=== PATIENT | female | born 1940 | race Caucasian/White ===

== ENCOUNTER 2017-11-10 19:20 | Emergency (ER) | payer MEDICARE, OTHER ==
[2017-11-10] MEDS ORDERED: Sodium Chloride 0.9% 10 ML Syringe FLUSH PRN (20:24)
[2017-11-10] MEDS ORDERED: Acetaminophen 500 MG Tab PO ONE (20:32)
--- NOTE | 2017-11-10 20:32 | EDM.PDOC ---
ED HPI GENERAL MEDICAL PROBLEM - General Chief Complaint: Respiratory Problem Stated Complaint: cough, fever Time Seen by Provider: 11/10/17 19:47 Source of Information: Reports: Patient, Family History Limitations: Reports: No Limitations - History of Present Illness INITIAL COMMENTS - FREE TEXT/NARRATIVE: Patient presents to the emergency room this evening with complaints of shortness of breath that has progressively worsened over the last 2 weeks. She states that on Tuesday, October 30 she was eating popcorn at the movie and did aspirate some of the popcorn. She was seen in the clinic the following Tuesday with a chest x-ray performed which was negative. Since then she has progressively been coughing more often, is beginning to produce sputum that is yellowish in color and today started running a temperature. Hasn't dictation she has a fever of 101.4F past medical history includes coronary artery disease , hypertension, hypothyroidism, hyper cholesterolemia. Her daughter reports a triple bypass was performed in 2015. I do not know which vessels. Shortly after that she developed pulmonary emboli requiring heparinization. Additionally she does have stents after a short bout of shortness of breath it was discovered that her bypasses had failed. She is currently on chronic Plavix treatment. She currently denies any chest pain, blood in her urine or stool, abdominal pain, nausea or vomiting, headaches or dizziness. She does also have an indwelling pacemaker which appears to be atrially paced. She was also given a prescribed cough syrup from her primary doctor Dr. Robson Fisher. Onset: Gradual Duration: Getting Worse Location: Reports: Chest Quality: Reports: Ache Severity: Mild Improves with: Reports: Medication Associated Symptoms: Reports: Shortness of Breath Treatments [employer]PER: Reports: Acetaminophen Bilateral lower rib pain Pain Score (Numeric/FACES): 8 - Related Data Allergies Allergy/AdvReac Type Severity Reaction Status Date / Time ketorolac tromethamine Allergy Hives Verified 11/10/17 20:42 [From Toradol] propoxyphene napsylate Allergy Cannot Verified 11/10/17 20:42 [From Darvon-N] Remember acetaminophen AdvReac Nausea and Verified 11/10/17 20:42 [From Lorcet (hydrocodone)] Vomiting codeine AdvReac Nausea Verified 11/10/17 20:42 hydrocodone bitartrate AdvReac Nausea and Verified 11/10/17 20:42 [From Lorcet (hydrocodone)] Vomiting Home Meds: Home Meds Aspirin [Adult Low Dose Aspirin EC] 81 mg PO DAILY 10/28/15 [History] Cyclobenzaprine [Flexeril] 10 mg PO TID PRN 10/28/15 [History] Metoprolol Succinate [Toprol XL] 50 mg PO DAILY 10/28/15 [History] Omeprazole 20 mg PO DAILY 10/28/15 [History] Sertraline HCl [Zoloft] 50 mg PO DAILY 10/28/15 [History] Zolpidem [Ambien] 5 mg PO BEDTIME PRN 10/28/15 [History] atorvaSTATin [Lipitor] 40 mg PO BEDTIME 10/28/15 [History] Acetaminophen 650 mg PO Q4H PRN 05/03/17 [History] Albuterol [IJD: Albuterol HFA] 2 puff INH Q4H PRN 05/03/17 [History] Clopidogrel [Plavix] 75 mg PO DAILY 05/03/17 [History] Fluticasone/Vilanterol [Breo Ellipta 100-25 MCG Inhalation Kit] 1 puff IH DAILY 05/03/17 [History] Levothyroxine Sodium [Synthroid] 100 mcg PO DAILY 05/03/17 [History] Lisinopril 10 mg PO DAILY 05/03/17 [History] Nitroglycerin 0.4 mg SL ASDIRECTED 05/03/17 [History] Potassium Chloride 10 meq PO DAILY 05/03/17 [History] traMADol [Ultram] 50 mg PO BEDTIME PRN 05/03/17 [History] Furosemide [Lasix] 40 mg PO DAILY 11/10/17 [History] Past Medical History HEENT History: Reports: Cataract Other HEENT History: presbyopia. myopia. astigmatism. superficial injury of cornea. Blepharitis. indocyclitis (inflamation of iris) Cardiovascular History: Reports: Blood Clots/VTE/DVT, Bypass, CAD, High Cholesterol, Hypertension, [place] Other Cardiovascular History: sinoatrial node dysfunction. varicose veins of legs Respiratory History: Reports: PE Gastrointestinal History: Reports: Diverticulosis, GERD, Hepatitis Other Gastrointestinal History: Had surgery roughly about 3-4 years ago which at that time they removed part of the intestines. She did get good relief from that procedure. Other Genitourinary History: acquired absense of genital organ Musculoskeletal History: Reports: Back Pain, Chronic, Osteoporosis Other Musculoskeletal History: SI joint inflammation. compression fracture of thoracic vertebrae, non traumatic. compression fracture of lumbar vertebre, non -traumatic Other Psychiatric History: adjustment disorder with mixed anxiety and depressed mood. grief reaction. dysthimic disorder Endocrine/Metabolic History: Reports: Hypothyroidism Other Endocrine/Metabolic History: impaired fasting glucose Other Hematologic History: vit D deficiency - Past Surgical History Cardiovascular Surgical History: Reports: Coronary Artery Bypass, Other (See Below) Social & Family History - Tobacco Use Smoking Status *Q: Never Smoker - Recreational Drug Use Recreational Drug Use: No ED ROS GENERAL - Review of Systems Review Of Systems: See Below Constitutional: Reports: Fever, Chills HEENT: Reports: No Symptoms Respiratory: Reports: Shortness of Breath Cardiovascular: Reports: No Symptoms Endocrine: Reports: No Symptoms GI/Abdominal: Reports: No Symptoms : Reports: No Symptoms Musculoskeletal: Reports: No Symptoms Skin: Reports: No Symptoms Neurological: Reports: No Symptoms Psychiatric: Reports: No Symptoms Hematologic/Lymphatic: Reports: No Symptoms Immunologic: Reports: No Symptoms ED EXAM, GENERAL - Physical Exam Exam: See Below Exam Limited By: No Limitations General Appearance: Alert, WD/WN, Mild Distress Eye Exam: Bilateral Eye: EOMI, Normal Inspection, PERRL Ears: Normal TMs Nose: Normal Inspection, Normal Mucosa, No Blood Throat/Mouth: Normal Inspection, Normal Lips, Normal Teeth, Normal Gums, Normal Oropharynx, Normal Voice, No Airway Compromise Head: Atraumatic, Normocephalic Neck: Normal Inspection, Supple, Non-Tender, Full Range of Motion Respiratory/Chest: No Respiratory Distress, Normal Breath Sounds, No Accessory Muscle Use, Rales Cardiovascular: Regular Rate, Rhythm, No Murmur Peripheral Pulses: 2+: Posterior Tibial (L), Posterior Tibial (R), Dorsalis Pedis (L), Dorsalis Pedis (R) GI/Abdominal: Normal Bowel Sounds, Soft, Non-Tender, No Organomegaly, No Distention, No Abnormal Bruit, No Mass Back Exam: Normal Inspection, Full Range of Motion, NT Extremities: Normal Inspection, Normal Range of Motion, Non-Tender, Normal Capillary Refill, No Pedal Edema Neurological: Alert, Oriented, CN II-XII Intact, Normal Cognition, Normal Gait, Normal Reflexes, No Motor/Sensory Deficits Psychiatric: Normal Affect, Normal Mood Skin Exam: Warm, Dry, Intact, Normal Color, No Rash Lymphatic: No Adenopathy Course - Vital Signs Last Recorded V/S: Last Vital Signs Temp 38.6 C H 11/10/17 19:20 Pulse 88 11/10/17 19:20 Resp 28 H 11/10/17 19:20 BP 110/62 11/10/17 19:20 Pulse Ox 98 11/10/17 19:20 - Orders/Labs/Meds Orders: Active Orders 24 hr Category Date Time Status EKG Documentation Completion [RC] URGENT Care 11/10/17 20:24 Active Chest 2V [CR] Stat Exams 11/10/17 19:47 Taken CULTURE BLOOD [BC] Stat Lab 11/10/17 20:18 Received CULTURE BLOOD [BC] Stat Lab 11/10/17 20:28 Received CULTURE SPUTUM + SMEAR [RM] Stat Lab 11/10/17 20:38 Ordered URINALYSIS W/MICROSCOPIC [UA W/MICROSCOPIC] [URIN] Stat Lab 11/10/17 20:45 Ordered Sodium Chloride 0.9% [Saline Flush] Med 11/10/17 20:24 Active 10 ml FLUSH ASDIRECTED PRN Blood Culture x2 Reflex Set [OM.PC] Stat Oth 11/10/17 19:47 Ordered Saline Lock Insert [OM.PC] Routine Oth 11/10/17 20:24 Ordered Medication Orders Sodium Chloride (Saline Flush) 10 ml FLUSH ASDIRECTED PRN PRN Reason: Keep Vein Open Labs: Laboratory Tests 11/10/17 11/10/17 11/10/17 Range/Units 20:18 20:18 20:18 WBC 8.1 (4.0-10.0) x10^3/uL RBC 3.84 L (4.00-5.50) x10^6/uL Hgb 11.5 L (12.0-16.0) g/dL Hct 35.8 (33.0-47.0) % MCV 93.2 H (78.0-93.0) fL MCH 29.9 (26.0-32.0) pg MCHC 32.1 (32.0-36.0) g/dL RDW Coeff of [place] 15.2 H (10.0-15.0) % Plt Count 316 (130-400) x10^3/uL Neut % (Auto) 68.8 (50.0-80.0) % Lymph % (Auto) 18.6 L (25.0-50.0) % [place] % (Auto) 8.4 (2.0-11.0) % Eos % (Auto) 4.0 (0.0-4.0) % Baso % (Auto) 0.2 (0.2-1.2) % POC ABG pH (7.35-7.45) POC ABG pCO2 (35-45) mmHG POC ABG pO2 (80-105) mmHG POC ABG HCO3 (22-26) mmol/L POC ABG Total CO2 (23-27) mmol/L POC ABG O2 Sat (95-98) % POC ABG Base Excess (-2-3) mmol/L POC FiO2 Sodium 139 (136-145) mmol/L Potassium 4.2 (3.5-5.1) mmol/L Chloride 103 (98-107) mmol/L Carbon Dioxide 26 (21-32) mmol/L Anion Gap 14.2 (10-20) mmol/L BUN 17 (7-18) mg/dL Creatinine 1.2 H (0.55-1.02) mg/dL Est Cr Clr Drug Dosing 31.05 mL/min Estimated GFR (MDRD) 44 Glucose 143 H (74-106) mg/dL Lactic Acid 1.2 (0.4-2.0) mmol/L Calcium 9.0 (8.5-10.1) mg/dL Corrected Calcium 9.48 (8.5-10.1) mg/dL Magnesium 1.8 (1.8-2.4) mg/dL Total Bilirubin 0.5 (0.2-1.0) mg/dL AST 32 (15-37) U/L ALT 27 (14-59) U/L Alkaline Phosphatase 158 H (46-116) U/L Troponin I < 0.017 (<=0.056) ng/mL C-Reactive Protein 21.9 H (<=0.9) mg/dL NT-Pro-B Natriuret Pep 1380 H (<=450) pg/mL Total Protein 7.9 (6.4-8.2) g/dL Albumin 3.4 (3.4-5.0) g/dL Globulin 4.5 Albumin/Globulin Ratio 0.76 TSH, Ultra Sensitive 0.664 (0.358-3.74) uIU/mL Urine Color (YELLOW) Urine Appearance (CLEAR) Urine pH (5.0-8.0) Ur Specific [place] Urine Protein (NEGATIVE) mg/dL Urine Glucose (UA) (NEGATIVE) mg/dL Urine Ketones (NEGATIVE) mg/dL Urine Occult Blood (NEGATIVE) Urine Nitrite (NEGATIVE) Urine Bilirubin (NEGATIVE) Urine Urobilinogen (0.2) EU/dL Ur Leukocyte Esterase (NEGATIVE) Urine RBC (NOT SEEN) /HPF Urine WBC (NOT SEEN) /HPF Ur Squamous Epith Cells (NEGATIVE) /HPF Urine Bacteria (NEGATIVE) /HPF Hyaline Casts (NEGATIVE) /HPF Urine Mucus (NEGATIVE) /LPF 11/10/17 11/10/17 Range/Units 20:41 20:45 WBC (4.0-10.0) x10^3/uL RBC (4.00-5.50) x10^6/uL Hgb (12.0-16.0) g/dL Hct (33.0-47.0) % MCV (78.0-93.0) fL MCH (26.0-32.0) pg MCHC (32.0-36.0) g/dL RDW Coeff of [place] (10.0-15.0) % Plt Count (130-400) x10^3/uL Neut % (Auto) (50.0-80.0) % Lymph % (Auto) (25.0-50.0) % [place] % (Auto) (2.0-11.0) % Eos % (Auto) (0.0-4.0) % Baso % (Auto) (0.2-1.2) % POC ABG pH 7.474 H (7.35-7.45) POC ABG pCO2 36 (35-45) mmHG POC ABG pO2 60 L (80-105) mmHG POC ABG HCO3 26 (22-26) mmol/L POC ABG Total CO2 27 (23-27) mmol/L POC ABG O2 Sat 92 L (95-98) % POC ABG Base Excess 3 (-2-3) mmol/L POC FiO2 0.21 Sodium (136-145) mmol/L Potassium (3.5-5.1) mmol/L Chloride (98-107) mmol/L Carbon Dioxide (21-32) mmol/L Anion Gap (10-20) mmol/L BUN (7-18) mg/dL Creatinine (0.55-1.02) mg/dL Est Cr Clr Drug Dosing mL/min Estimated GFR (MDRD) Glucose (74-106) mg/dL Lactic Acid (0.4-2.0) mmol/L Calcium (8.5-10.1) mg/dL Corrected Calcium (8.5-10.1) mg/dL Magnesium (1.8-2.4) mg/dL Total Bilirubin (0.2-1.0) mg/dL AST (15-37) U/L ALT (14-59) U/L Alkaline Phosphatase (46-116) U/L Troponin I (<=0.056) ng/mL C-Reactive Protein (<=0.9) mg/dL NT-Pro-B Natriuret Pep (<=450) pg/mL Total Protein (6.4-8.2) g/dL Albumin (3.4-5.0) g/dL Globulin Albumin/Globulin Ratio TSH, Ultra Sensitive (0.358-3.74) uIU/mL Urine Color Dark yellow H (YELLOW) Urine Appearance Cloudy H (CLEAR) Urine pH 5.5 (5.0-8.0) Ur Specific [place] 1.010 Urine Protein Negative (NEGATIVE) mg/dL Urine Glucose (UA) Negative (NEGATIVE) mg/dL Urine Ketones Negative (NEGATIVE) mg/dL Urine Occult Blood Trace-intact H (NEGATIVE) Urine Nitrite Negative (NEGATIVE) Urine Bilirubin Negative (NEGATIVE) Urine Urobilinogen 0.2 (0.2) EU/dL Ur Leukocyte Esterase Negative (NEGATIVE) Urine RBC 5-10 H (NOT SEEN) /HPF Urine WBC 0-5 (NOT SEEN) /HPF Ur Squamous Epith Cells Few H (NEGATIVE) /HPF Urine Bacteria Few H (NEGATIVE) /HPF Hyaline Casts Few H (NEGATIVE) /HPF Urine Mucus Few H (NEGATIVE) /LPF Meds: Medications Generic Name Dose Route Start Last Admin Trade Name Freq PRN Reason Stop Dose Admin Sodium Chloride 10 ml 11/10/17 20:24 Saline Flush FLUSH ASDIRECTED PRN Keep Vein Open Discontinued Medications Generic Name Dose Route Start Last Admin Trade Name Freq PRN Reason Stop Dose Admin Acetaminophen 500 mg 11/10/17 20:32 11/10/17 20:44 Tylenol Extra Strength PO 11/10/17 20:33 500 mg ONETIME ONE Administration Ceftriaxone Sodium 1 gm 11/10/17 20:45 11/10/17 21:04 Rocephin IVPUSH 11/10/17 20:46 1 gm ONETIME ONE Administration - Radiology Interpretation Free Text/Narrative:: Chest x-ray shows mild vascular congestion. No infiltrates or atelectasis. - Re-Assessments/Exams Free Text/Narrative Re-Assessment/Exam: 11/10/17 21:53 Labs show normal WBC's, normal lactic acid, normal tsh, troponin, elevated CRP, elevated PRO BNP, normal potassium and magnesium. Urine negative Will treat as viral URI, with supplemental lasix for next 10 days and additional KCL tablets as well Departure - Departure Time of Disposition: 21:57 Disposition: Home, Self-Care 01 Condition: Good Clinical Impression: Acute exacerbation of congestive heart failure, Viral URI with cough - Discharge Information Instructions: Heart Failure, [id number], Upper Respiratory Infection, Adult, [id number] Forms: ED Department Discharge Additional Instructions: Your Pro BNP is elevated at 1380. This is an indicator that your heart failure at this time has worsened. I believe this is related to your most recent illness. Please take an additional dose of Lasix 40 mg in the early afternoon for 10 days. Please also add another 10 meQ of your potassium tablet at the same time. Please schedule a follow up appointment with Dr. Key for early next week and discuss your visit here. If you do not have improvement he may want you to follow up with your digital program manager. I have written you a prescription for 10 additional lasix tablets to take in the afternoon. Please call with any questions or concerns. - Problem List & Annotations (1) Acute exacerbation of congestive heart failure SNOMED Code(s): 82543872 Code(s): I50.9 - HEART FAILURE, UNSPECIFIED Status: Acute Priority: Low Current Visit: Yes Qualifiers: Heart failure type: unspecified Qualified Code(s): I50.9 - Heart failure, unspecified (2) Viral URI with cough SNOMED Code(s): 249748681 Code(s): J06.9 - ACUTE UPPER RESPIRATORY INFECTION, UNSPECIFIED; B97.89 - OTH VIRAL AGENTS THE CAUSE OF DISEASES CLASSD [id number] Status: Acute Priority: Low Current Visit: Yes - Problem List Review Problem List Initiated/Reviewed/Updated: Yes - My Orders Last 24 Hours: My Active Orders 11/10/17 19:47 Chest 2V [CR] Stat Blood Culture x2 Reflex Set [OM.PC] Stat 11/10/17 20:18 CULTURE BLOOD [BC] Stat 11/10/17 20:24 EKG Documentation Completion [RC] URGENT Sodium Chloride 0.9% [Saline Flush] 10 ml FLUSH ASDIRECTED PRN Saline Lock Insert [OM.PC] Routine 11/10/17 20:28 CULTURE BLOOD [BC] Stat 11/10/17 20:38 CULTURE SPUTUM + SMEAR [RM] Stat 11/10/17 20:45 URINALYSIS W/MICROSCOPIC [UA W/MICROSCOPIC] [URIN] Stat - Assessment/Plan Last 24 Hours: My Active Orders 11/10/17 19:47 Chest 2V [CR] Stat Blood Culture x2 Reflex Set [OM.PC] Stat 11/10/17 20:18 CULTURE BLOOD [BC] Stat 11/10/17 20:24 EKG Documentation Completion [RC] URGENT Sodium Chloride 0.9% [Saline Flush] 10 ml FLUSH ASDIRECTED PRN Saline Lock Insert [OM.PC] Routine 11/10/17 20:28 CULTURE BLOOD [BC] Stat 11/10/17 20:38 CULTURE SPUTUM + SMEAR [RM] Stat 11/10/17 20:45 URINALYSIS W/MICROSCOPIC [UA W/MICROSCOPIC] [URIN] Stat Assessment:: viral upper respiratory infectioin acute CHF exacerbation Plan: Your Pro BNP is elevated at 1380. This is an indicator that your heart failure at this time has worsened. I believe this is related to your most recent illness. Please take an additional dose of Lasix 40 mg in the early afternoon for 10 days. Please also add another 10 meQ of your potassium tablet at the same time. Please schedule a follow up appointment with Dr. Key for early next week and discuss your visit here. If you do not have improvement he may want you to follow up with your digital program manager. I have written you a prescription for 10 additional lasix tablets to take in the afternoon. Please call with any questions or concerns.
[2017-11-10] MEDS ORDERED: cefTRIAXone 1 GM Vial IVPUSH ONE (20:45)
[2017-11-10 20:56] VITALS: BP 110/62
[2017-11-10 21:13] LABS: CHLORIDE,CL 103 mmol/L (98-107); SODIUM,NA 139 mmol/L (136-145)
[2017-11-10] MEDS ORDERED: Furosemide 40 MG/4 ML VIAL IV ONE (21:37)
== END 2017-11-10 22:07 | disposition home or self-care (01) ==
LOC: VM.ED 19:20
DX: I11.0 Hypertensive heart disease with heart failure (principal); I50.9 Heart failure, unspecified; J06.9 Acute upper respiratory infection, unspecified; I25.2 Old myocardial infarction; E03.9 Hypothyroidism, unspecified; Z88.5 Allergy status to narcotic agent; Z88.8 Allergy status to other drugs, medicaments and biological substances; Z79.82 Long term (current) use of aspirin; Z79.899 Other long term (current) drug therapy
CPT/HCPCS: 36415; 36600; 71046; 80053; 81001; 82803; 83605; 83735; 83880; 84443; 84484; 85025; 86140; 87040; 93005; 96374; 96375; 99284; A9270; J0696; J1940

== ENCOUNTER 2020-11-08 08:16 | Emergency (ER) | payer MEDICARE, OTHER ==
[2020-11-08] MEDS ORDERED: Morphine 2 MG/ML SYRINGE IM ONE (08:42)
[2020-11-08] MEDS ORDERED: Ondansetron 4 MG Tab.DIS PO ONE (08:43)
[2020-11-08 08:51] VITALS: BP 160/83; PULSE 75
--- NOTE | 2020-11-08 08:59 | EDM.PDOC ---
ED HPI GENERAL MEDICAL PROBLEM - General Chief Complaint: Back Pain or Injury Time Seen by Provider: 11/08/20 08:36 Source of Information: Reports: Patient - History of Present Illness INITIAL COMMENTS - FREE TEXT/NARRATIVE: Stefani is an 80 year old female who comes to the ER with pain in her back region. She reports that she has had a "tingling" sensation in her left arm for the last 2 weeks and then a little pain on the left posterior rib region, but then the pain got really bad late yesterday and she could hardly sleep. She is now here and reports that pain is bad in both sides of her back, but worse in the right side. No fevers. She was seen by Dr Steffany Fisher on 10-27-2020 and put on Gabapentin for a left upper arm neuralgia. Denies any injuries or falls. Middle Back Pain Score (Numeric/FACES): 10 - Related Data Allergies Allergy/AdvReac Type Severity Reaction Status Date / Time ketorolac tromethamine Allergy Hives Verified 11/08/20 08:40 [From Toradol] propoxyphene napsylate Allergy Cannot Verified 11/08/20 08:40 [From Darvon-N] Remember acetaminophen AdvReac Nausea and Verified 11/08/20 08:40 [From Lorcet (hydrocodone)] Vomiting codeine AdvReac Nausea Verified 11/08/20 08:40 hydrocodone bitartrate AdvReac Nausea and Verified 11/08/20 08:40 [From Lorcet (hydrocodone)] Vomiting Home Meds: Home Meds Aspirin [Adult Low Dose Aspirin EC] 81 mg PO DAILY 10/28/15 [History] Sertraline HCl [Zoloft] 50 mg PO DAILY 10/28/15 [History] atorvaSTATin [Lipitor] 80 mg PO BEDTIME 10/28/15 [History] Acetaminophen 650 mg PO Q4H PRN 05/03/17 [History] Levothyroxine Sodium [Synthroid] 100 mcg PO DAILY 05/03/17 [History] Nitroglycerin 0.4 mg SL ASDIRECTED 05/03/17 [History] Potassium Chloride 10 meq PO DAILY 05/03/17 [History] Cholecalciferol (Vitamin D3) [Vitamin D3] 3,000 unit PO DAILY 11/08/20 [History] Furosemide 40 mg PO DAILY 11/08/20 [History] Meloxicam [Mobic] 7.5 mg PO DAILY 11/08/20 [History] Metoprolol Succinate [Toprol Xl] 50 mg PO DAILY 11/08/20 [History] Ondansetron [Zofran ODT] 4 mg PO Q6H PRN #12 tab.dis 11/08/20 [Rx] Pantoprazole [ProTONIX] 40 mg PO DAILY 11/08/20 [History] Zolpidem [Ambien] 5 mg PO BEDTIME PRN 11/08/20 [History] traMADol [Ultram] 50 mg PO ASDIRECTED PRN 11/08/20 [History] valACYclovir [Valtrex] 1,000 mg PO BID 10 Days #20 tablet 11/08/20 [Rx] Past Medical History HEENT History: Reports: Cataract Other HEENT History: presbyopia. myopia. astigmatism. superficial injury of cornea. Blepharitis. indocyclitis (inflamation of iris) Cardiovascular History: Reports: Blood Clots/VTE/DVT, Bypass, CAD, High Cholesterol, Hypertension, NE Other Cardiovascular History: sinoatrial node dysfunction. varicose veins of legs Respiratory History: Reports: PE Gastrointestinal History: Reports: Diverticulosis, GERD, Hepatitis Other Gastrointestinal History: Had surgery roughly about 3-4 years ago which at that time they removed part of the intestines. She did get good relief from that procedure. Other Genitourinary History: acquired absense of genital organ Musculoskeletal History: Reports: Back Pain, Chronic, Osteoporosis Other Musculoskeletal History: SI joint inflammation. compression fracture of thoracic vertebrae, non traumatic. compression fracture of lumbar vertebre, non-traumatic Other Psychiatric History: adjustment disorder with mixed anxiety and depressed mood. grief reaction. dysthimic disorder Endocrine/Metabolic History: Reports: Hypothyroidism Other Endocrine/Metabolic History: impaired fasting glucose Other Hematologic History: vit D deficiency - Past Surgical History Other HEENT Surgeries/Procedures: pseudophakos (intraocular lense replacement). eye globe replaced replaced by other means Cardiovascular Surgical History: Reports: Coronary Artery Bypass, Other (See Below) Other Cardiovascular Surgeries/Procedures: November 2015, triple bypass Review of Systems - Review of Systems Review Of Systems: See Below Constitutional: Reports: No Symptoms Eyes: Reports: No Symptoms Ears: Reports: No Symptoms Nose: Reports: No Symptoms Mouth/Throat: Reports: No Symptoms Respiratory: Reports: No Symptoms Cardiovascular: Reports: No Symptoms GI/Abdominal: Reports: No Symptoms Genitourinary: Reports: No Symptoms Musculoskeletal: Reports: Back Pain Skin: Reports: No Symptoms Neurological: Reports: No Symptoms Psychiatric: Reports: No Symptoms ED EXAM, GENERAL - Physical Exam Exam: See Below Exam Limited By: No Limitations General Appearance: Alert, WD/WN, No Apparent Distress (Elderly female) Ears: Hearing Grossly Normal Nose: Normal Inspection, Normal Mucosa Throat/Mouth: Normal Lips, Normal Teeth, Normal Voice Head: Atraumatic, Normocephalic Neck: Normal Inspection Respiratory/Chest: No Respiratory Distress, Lungs Clear, Chest Non-Tender Cardiovascular: Normal Peripheral Pulses, Regular Rate, Rhythm GI/Abdominal: Normal Bowel Sounds, Soft, Non-Tender (Female) Exam: Deferred Rectal (Female) Exam: Deferred Back Exam: Vertebral Tenderness, Other (Note tenderness over bilateral posterior rib region, worse on the right side; note very small erythematous rash on the right flank region-no blistering-no other obvious deformities) Extremities: Normal Inspection, No Pedal Edema, Normal Capillary Refill Neurological: Alert, Oriented, CN II-XII Intact, Normal Cognition, No Motor/Sensory Deficits Psychiatric: Normal Affect Skin Exam: Warm, Dry, Intact, Normal Color Lymphatic: No Adenopathy Course - Vital Signs Text/Narrative:: 0836 The patient was seen by the EDUCATIONAL TECHNICIAN. Xrays ordered. Her [place] notes were reviewed No labs done on mot recent clinic visit, but she was started on Gabapentin for neuralgia type pain. 0945 Xrays reviewed. CXR with Right Ribs, no acute findings noted. Thoracic spine, note questionable chronic lower vertebral changes (will await radiology reading). Since patient has broke out in a mild rash over the right flank region, will start her on Valtrex to cover her for shingles and then also have her take the Tramadol that she has at home for pain and continue the Gabapentin that she was started on by her PCP. Discussed possibility of other findings on xrays with the patient and her daughter and we would notify her. She will keep her follow up with Dr Fisher. She was given discharge instructions and left the ER in stable condition. Last Recorded V/S: Last Vital Signs Temp 35.5 C L 11/08/20 08:16 Pulse 75 11/08/20 08:16 Resp 18 11/08/20 08:16 BP 160/83 H 11/08/20 08:16 Pulse Ox 97 11/08/20 08:16 - Orders/Labs/Meds Meds: Medications Discontinued Medications Generic Name Dose Route Start Last Admin Trade Name Freq PRN Reason Stop Dose Admin Morphine Sulfate 1 mg 11/08/20 08:42 11/08/20 09:03 Morphine 2 Mg/Ml Syringe IM 11/08/20 08:43 1 mg ONETIME ONE Administration Ondansetron HCl 4 mg 11/08/20 08:43 11/08/20 09:03 Ondansetron 4 Mg Tab.Dis PO 11/08/20 08:44 4 mg ONETIME ONE Administration - Radiology Interpretation Free Text/Narrative:: XR Chest with R Ribs=no acute findings, no acute findings XR Thoracic Spine=note chronic changes (no xrays for comparison, await final report) Departure - Departure Time of Disposition: 09:55 Disposition: Home, Self-Care 01 Condition: Good Clinical Impression: Herpes zoster Qualifiers: Herpes zoster complications: unspecified herpes zoster complication Qualified Code(s): B02.8 - Zoster with other complications Thoracic back pain Qualifiers: Chronicity: unspecified Back pain laterality: bilateral Qualified Code(s): M54.6 - Pain in thoracic spine - Discharge Information *PRESCRIPTION DRUG MONITORING PROGRAM REVIEWED*: Not Applicable *COPY OF PRESCRIPTION DRUG MONITORING REPORT IN PATIENT ALESSIO: Not Applicable Prescriptions: valACYclovir [Valtrex] 1,000 mg PO BID 10 Days #20 tablet Ondansetron [Zofran ODT] 4 mg PO Q6H PRN #12 tab.dis PRN Reason: Nausea Instructions: Shingles, [id number] Referrals: Steffany Fisher DO [Primary Care Provider] - Forms: ED Department Discharge Additional Instructions: -Valcyclovir 1000mg oral 2x daily for 10 days (Rx) -Ondanestron ODT 4mg oral every 6 hours as needed for nausea #12(Rx) -Continue Tramadol for pain. Also continue the Gabapentin. -Keep your appt with Dr Steffany Fisher -Return as needed to the ER Sepsis Event Note (ED) - Evaluation Sepsis Screening Result: No Definite Risk - Focused Exam Vital Signs: Vital Signs Temp Pulse Resp BP Pulse Ox 11/08/20 08:16 35.5 C L 75 18 160/83 H 97
--- NOTE | 2020-11-08 10:36 | CR ---
[id number] RAD/RAD Thoracic Spine 2V EXAM: RAD Thoracic Spine 2V INDICATION: RIGHT BACK AND RIB PAIN COMPARISON: March 16, 2019 chest exam. DISCUSSION: A mild age-indeterminate T8 compression fracture is new relative to the prior study. T12, L1 and L2 vertebral compression fractures post vertebral plasty augmentation have not appreciably changed. Mild to moderate thoracic spondylosis is similar to prior studies. Partially imaged pacemaker leads. Prior sternotomy. IMPRESSION: 1. A mild age-indeterminate T8 compression fracture is new relative to March 16, 2019. Alexsander Prince MD 11/08/20 1034 Thank you for allowing us to participate in the care of your patient.
--- NOTE | 2020-11-08 10:39 | CR ---
[id number] RAD/RAD Ribs Right W PA Chest EXAM: RAD Ribs Right W PA Chest INDICATION: PAIN COMPARISON: November 10, 2017. FINDINGS: The lungs are mildly hyperinflated, but clear. Borderline heart size without evidence of edema. Sternotomy. Left subclavian approach pacemaker leads RA and RV. No pleural fluid or pneumothorax is identified. Chronic appearing lateral right fourth, fifth and sixth rib fractures. No definite acute fractures. Partially characterized vertebroplasty changes at the thoracolumbar junction. IMPRESSION: 1. No acute findings. Alexsander Prince MD 11/08/20 1038 Thank you for allowing us to participate in the care of your patient.
== END 2020-11-08 10:05 | disposition home or self-care (01) ==
LOC: VM.ED 08:16
DX: M54.6 Pain in thoracic spine (principal); B02.8 Zoster with other complications; I25.10 Atherosclerotic heart disease of native coronary artery without angina pectoris; E78.00 Pure hypercholesterolemia, unspecified; I10 Essential (primary) hypertension; I25.2 Old myocardial infarction; K21.9 Gastro-esophageal reflux disease without esophagitis; E03.9 Hypothyroidism, unspecified; Z88.5 Allergy status to narcotic agent; Z88.8 Allergy status to other drugs, medicaments and biological substances; Z88.6 Allergy status to analgesic agent; Z95.1 Presence of aortocoronary bypass graft; Z79.82 Long term (current) use of aspirin
CPT/HCPCS: 71101; 72070; 96372; 99283; 99284; A9270; J2270